=== PATIENT | female | born 1975 | race Caucasian/White ===

== ENCOUNTER 2017-03-27 12:29 | Emergency (ER) | payer MEDICAID, OTHER ==
[~2017-03-27 12:29] MED LIST: ANAP550T PO; PERC5TAB12 PO; SENN1TAB11 PO; Z.0.NO CURRENT MEDS
[2017-03-27 12:30] VITALS: BP 161/74; PULSE 110; RESP 18; TEMP 98.7; O2SAT 100
--- NOTE | 2017-03-27 13:32 | RADRPT ---
EXAM DATE/TIME: 03/27/2017 13:19 [place] COMPARISON: No previous studies available for comparison. INDICATIONS : Cough. MEDICAL HISTORY : None. SURGICAL HISTORY : None. ENCOUNTER: Initial ACUITY: 2 weeks PAIN SCORE: 0/10 LOCATION: Bilateral chest FINDINGS: PA and lateral views of the chest demonstrate the lungs to be symmetrically aerated without evidence of mass, infiltrate or effusion. The cardiomediastinal contours are unremarkable. Osseous structure s are intact. CONCLUSION: No acute disease. Pierce Moser MD on March 27, 2017 at 13:28 Board Certified Radiologist. This report was verified electronically.
[2017-03-27] MEDS ORDERED: ROBA750T PO (14:59)
[2017-03-27] MEDS ORDERED: ALBUAER3 INH (14:59)
[2017-03-27] MEDS ORDERED: BENZ100 PO (14:59)
--- NOTE | 2017-03-27 14:59 | PD ---
HPI Chief Complaint: Cold / Flu Symptoms Time Seen by Provider: 14:29 Travel History International Travel<30 days: No Contact w/Intl Traveler<30days: No Traveled to known affect area: No History of Present Illness HPI This is a 41-year-old female here with back pain after a coughing episode yesterday. She reports she has had a cough and occasional wheezing for the last 2 weeks. She denies fever chills. She reports the pain in her low back is located in the lumbar region and nonradiating. It is worse with movement and relieved with rest. She reports this is similar to prior muscle spasm she has had in her back. Symptom severity is moderate. PFSH Past Medical History Narrative Medical History of asthma Diminished Hearing: No ?: Not LMP: 03/15/17 Social History Alcohol Use: No Tobacco Use: Yes (1ppd ) Substance Use: No Allergies-Medications (Allergen,Severity, Reaction): Coded Allergies: No Known Allergies (Unverified , 05/30/12) Reported Meds & Prescriptions Reported Meds & Active Scripts Active Proair Hfa 8.5 GM Inh (Albuterol Sulfate) 90 Mcg/Act Aer 2 Puff INH Q4-6H PRN 108 mcg/actuation Tessalon Perles (Benzonatate) 100 Mg Cap 100 Mg PO TID PRN Robaxin (Methocarbamol) 750 Mg Tab 750 Mg PO TID Reported Percocet 5-325 mg (Oxycodone/Acetaminophen) 5 Mg/325 Mg Tab 1-2 Tab PO Q6HPRN Senna Plus 8.6-50 mg (Senna/Docusate Sodium) 1 Tab Tab 1-2 Tab PO BIDPRN Anaprox Ds (Naproxen Sodium) 550 Mg Tab 550 Mg PO BID No Current Meds (Miscellaneous Medication) Misc Review of Systems Except as stated in HPI: all other systems reviewed are Neg General / Constitutional: No: Fever Eyes: No: Visual changes HENT: Positive: Sore Throat Cardiovascular: No: Chest Pain or Discomfort Respiratory: Positive: Cough Gastrointestinal: No: Abdominal Pain Genitourinary: No: Dysuria Skin: No Rash Physical Exam Narrative GENERAL: Alert and well-appearing female. No distress. SKIN: Warm and dry. HEAD: Normocephalic. EYES: No scleral icterus. No injection or drainage. NECK: Supple, trachea midline. CARDIOVASCULAR: Regular rate and rhythm RESPIRATORY: Breath sounds equal bilaterally. No accessory muscle use. No wheezing, rail or rhonchi GASTROINTESTINAL: Abdomen soft, non-tender, nondistended. MUSCULOSKELETAL: No cyanosis, or edema. BACK: Tenderness to the left lumbar region. No spine tenderness. Without obvious deformity. No CVA tenderness. Data Data Last Documented VS Vital Signs Date Time Temp Pulse Resp B/P (MAP) Pulse Ox O2 Delivery O2 Flow Rate FiO2 03/27/17 15:02 03/27/17 12:30 98.7 110 18 100 Orders Orders Chest, Pa & Lat (03/27/17 ) Ed Discharge Order (03/27/17 15:00) MDM Medical Decision Making Medical Screen Exam Complete: Yes Emergency Medical Condition: Yes Differential Diagnosis URI, pneumonia, bronchitis, Narrative Course 41-year-old female here with mild URI-like symptoms and low back pain after coughing episode yesterday. Her vital signs are stable. Her chest x-ray is clear. She has tenderness of the lumbar paraspinous musculature. She'll be treated for lumbar strain and muscle spasm. Tessalon Perle for cough and refill of her albuterol inhaler. Diagnosis Primary Impression: Lumbar strain Qualified Codes: S39.012A - Strain of muscle, fascia and tendon of lower back , initial encounter Additional Impression: URI (upper respiratory infection) Qualified Codes: J06.9 - Acute upper respiratory infection, unspecified Referrals: Primary Care Physician Departure Forms: Tests/Procedures, Work Release Enter return to work date: Mar 28, 2017 Additional Instructions: Take [id number] ibuprofen 800 mg every 6 hours. Muscle relaxer as needed for muscle spasm. Tessalon Perle as needed for cough. Albuterol inhaler as needed for wheezing. Follow-up the [facility]. Scripts Albuterol 8.5 GM Inh (Proair Hfa 8.5 GM Inh) 90 Mcg/Act Aer 2 PUFF INH Q4-6H Y for SHORTNESS OF BREATH, #1 INHALER 0 Refills 108 mcg/actuation Prov: Cely Stearns [employer] EXTENSION EDUCATOR 03/27/17 Benzonatate (Tessalon Perles) 100 Mg Cap 100 MG PO TID Y for COUGH, #12 CAP 0 Refills Prov: Cely Stearns [employer] EXTENSION EDUCATOR 03/27/17 Methocarbamol (Robaxin) 750 Mg Tab 750 MG PO TID for Muscle Spasm, #12 TAB 0 Refills Prov: Cely Stearns 03/27/17 Disposition: 01 DISCHARGE HOME Condition: Stable Cely Stearns Mar 27, 2017 14:59
== END 2017-03-27 15:03 | disposition home or self-care (01) ==
LOC: NEPK 12:29
DX: S39.012A Strain of muscle, fascia and tendon of lower back, initial encounter (principal); J06.9 Acute upper respiratory infection, unspecified; J45.909 Unspecified asthma, uncomplicated; F17.200 Nicotine dependence, unspecified, uncomplicated; X58.XXXA Exposure to other specified factors, initial encounter
CPT/HCPCS: 71046; 99284

== ENCOUNTER 2017-07-03 19:51 | Emergency (ER) | payer MEDICAID ==
[~2017-07-03 19:51] MED LIST changes: +ALBUAER3 INH; +BENZ100 PO; +ROBA750T PO
[2017-07-03 20:13] VITALS: BP 129/74; PULSE 102; RESP 17; TEMP 97.8; O2SAT 98
[2017-07-03] MEDS ORDERED: KETOROLAC TROMETHAMINE 60 MG/2 ML (IM) VIAL IM ONE (20:30)
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
[2017-07-03] MEDS ORDERED: IBUP1TAB7 PO (20:42)
== END 2017-07-03 21:17 | disposition home or self-care (01) ==
LOC: NEPK 19:51
DX: M25.561 Pain in right knee (principal); F17.200 Nicotine dependence, unspecified, uncomplicated
CPT/HCPCS: 96372; 99283; E0113; J1885

== ENCOUNTER 2017-07-17 18:06 | Emergency (ER) | payer MEDICAID | END 2017-07-17 20:23 | disposition home or self-care (01) | LOC: NEPK 18:06 | DX: M23.91 Unspecified internal derangement of right knee (principal); F17.200 Nicotine dependence, unspecified, uncomplicated | CPT/HCPCS: 73564; 99283 ==